=== PATIENT | female | born 1975 | race American Indian/Alaskan Native ===

== ENCOUNTER 2021-02-02 13:57 | Outpatient (CLI) | payer BC ==
--- NOTE | 2021-02-02 14:52 | XRay Report ---
CHEST 2 VIEWS INDICATION / CLINICAL INFORMATION: SHORTNESS OF BREATH ON EXERTION. COMPARISON: None available. FINDINGS: SUPPORT DEVICES: None. HEART / MEDIASTINUM: No significant abnormality. LUNGS / PLEURA: No significant pulmonary or pleural abnormality. No pneumothorax. ADDITIONAL FINDINGS: No significant additional findings. IMPRESSION: No acute cardiopulmonary abnormality. Signer Name: Antonio Moon MD Signed: 02/02/2021 2:48 PM Workstation Name: [id number]
== END 2021-02-02 13:58 | disposition home or self-care (01) ==
LOC: SPVIMAG 13:57
PROVIDERS: ATTEND Nurse Practitioner
DX: R06.02 Shortness of breath (principal)
CPT/HCPCS: 71046